=== PATIENT | male | born 1975 | race Caucasian/White ===

== ENCOUNTER 2016-06-27 13:17 | Emergency (ER) | payer SELFPAY ==
[~2016-06-27] VITALS: Ht 172.7 cm; Wt 96.3 kg
[2016-06-27 13:54] VITALS: BP 131/81
== END 2016-06-27 13:56 | disposition home or self-care (01) ==
LOC: ED 13:19
DX: J11.1 Influenza due to unidentified influenza virus with other respiratory manifestations (principal); R50.81 Fever presenting with conditions classified elsewhere
CPT/HCPCS: 99282; 99283